=== PATIENT | female | born 1935 | race Caucasian/White ===

== ENCOUNTER 2017-08-30 13:22 | Outpatient (CLI) | payer MEDICARE, MEDICAID ==
--- NOTE | 2017-08-30 14:32 | Diagnostic Imaging Report ---
Indication: Chest pain Comparison: 12/10/2009 2 views of the chest obtained. Findings: Cardiomediastinal silhouette is prominent but within normal limits for age. There is no change. The diaphragmatic contour is smooth and costophrenic angles are sharp. No pleural effusions are identified. The bones are osteopenic. Impression: No acute disease
== END 2017-08-30 15:22 | disposition home or self-care (01) ==
LOC: RAD 13:22
DX: Z01.818 Encounter for other preprocedural examination (principal); M81.8 Other osteoporosis without current pathological fracture; E53.0 Riboflavin deficiency; I10 Essential (primary) hypertension; M85.88 Other specified disorders of bone density and structure, other site
CPT/HCPCS: 71046